=== PATIENT | female | born 1945 | race Caucasian/White ===

== ENCOUNTER 2019-01-25 10:49 | Day surgery (SDC) | payer OTHER, BC ==
[2019-01-25] MEDS ORDERED: DUOVISC 1 KIT OPTH ONE (11:10)
[2019-01-25] MEDS ORDERED: NS 0.9% VIAL 10 ML ONE (11:10)
[2019-01-25] MEDS ORDERED: EPINEPHRINE/PF 1 MG/ML AMP ONE (11:10)
[2019-01-25] MEDS ORDERED: BALANCED SALT IRRIG PLAIN 500 ML BTL IRR ONE (11:10)
[2019-01-25] MEDS ORDERED: MOXIFLOXACIN HCL 10 DROPS/ML **OR USE OPTH ONE (11:11)
[2019-01-25] MEDS ORDERED: NA CHLORIDE 0.9% 500 ML ONE (11:12)
[2019-01-25] MEDS ORDERED: CYCLOPENTOLATE 1% OPTH 2 ML ONE (11:12)
[2019-01-25] MEDS ORDERED: PHENYLEPHRINE 10% OPTH 5ML ONE (11:12)
[2019-01-25] MEDS ORDERED: PHENYLEPHRINE 10% OPTH 5ML OPTH ONE ×2 (11:18→11:24)
[2019-01-25] MEDS ORDERED: CYCLOPENTOLATE 1% OPTH 2 ML OPTH ONE ×2 (11:18→11:24)
[2019-01-25] MEDS: TETRACAINE HCL 0.5% 2ML OPTH ONE ×2 (12:26→12:40)
[2019-01-25] MEDS: BUPIVACAINE 0.25% PF 10 ML VIAL ONE ×2 (12:27→12:41)
[2019-01-25] MEDS: LIDOCAINE 2% MPF 5 ML VIAL ONE ×2 (12:28→12:41)
[2019-01-25] MEDS ORDERED: PROPOFOL 200 MG/20 ML VIAL IV ONE (12:47)
[2019-01-25] MEDS ORDERED: LIDOCAINE 1% MPF 5 ML VIAL ONE (12:47)
--- NOTE | 2019-01-25 13:24 | P.BOP ---
Preoperative diagnosis: Nuclear sclerotic and anterior subcapsular cataract OD Postoperative diagnosis: Same Primary procedure: Phacoemulsification with IOL OD Estimated blood loss: None Anesthesia: Local (Subtenon's infusion with anesthesia for cataract surgery) Complications: None Implants: ZCB00 +15.0 Transferred to: Other (Day surgery) Condition: Good
--- NOTE | 2019-01-25 16:56 | OP ---
Date of Procedure: 01/25/2019 Surgeon: Katalina Plasencia MD Anesthesiologist: Nick Howell CRNA, and Moises Sorensen M.D. Preoperative Diagnoses: Nuclear sclerotic and anterior subcapsular cataract, right eye Operation Performed: Phacoemulsification with intraocular lens implant, right eye. Anesthesia: Per cataract surgery. Complications: None. Description Of Procedure: In day surgery, the patient was prepped with Betadine and draped. A conju nctival incision was made in the inferior nasal quadrant with Miroslava scissors. A sub-Tenon block c onsisting of a 1:1 mixture of 2% Xylocaine and 0.25% bupivacaine was placed through the conjunctival incision with a blunt cannula. A Honan balloon was placed over the eye and the patient was transferr ed to the operating room. In the operating room the patient was prepped and draped in the usual sterile fashion for ophthalmic surgery. A lid speculum was placed in the right eye. Two paracentesis sites were made superiorly an d inferiorly in the limbal cornea. Viscoat was placed in the anterior chamber and a crescent blade w as used to make a corneal groove and tunnel, and a keratome was used to enter the anterior chamber. Provisc was placed in the anterior chamber and a 360 degree capsulotomy was performed with a cystitom e. The lens was hydrodissected with BSS and rotated freely. The lens was removed with a stop and ch op technique. 5.08 phaco CDE was used to remove the lens. Residual cortex was removed with the irri gation and aspiration. Provisc was placed in the capsular bag. A ZCB00 +15.0 lens was placed in the capsular bag without complications. Irrigation and aspiration was used to remove residual viscoelas tic. The paracentesis sites were hydrated with BSS. The wound and paracentesis sites were inspected and found to be watertight. Vigamox 0.07 cc was placed intracamerally at the end of the procedure. The eye was irrigated with balanced salt solution. The eye was patched with a soft cotton patch and Dutta metal shield. The patient was returned to day surgery in good condition. Comments: Discharge Instructions: Ms. Reyez is discharged to home in good condition and is to follow up with Dr. Plasencia in the morning. AMBIKA/VICKI Voice ID: [id number] Report ID: [id number]
== END 2019-01-25 13:55 | disposition home or self-care (01) ==
LOC: OR 10:49
PROVIDERS: ATTEND Ophthalmology Retina Specialist
PROC: 08RJ3JZ Replacement of Right Lens with Synthetic Substitute, Percutaneous Approach (ICD-10-PCS; principal; 2019-01-25 11:00)
DX: H25.11 Age-related nuclear cataract, right eye (principal); H25.031 Anterior subcapsular polar age-related cataract, right eye; K21.9 Gastro-esophageal reflux disease without esophagitis; E78.00 Pure hypercholesterolemia, unspecified; E07.9 Disorder of thyroid, unspecified; Z88.0 Allergy status to penicillin; Z88.2 Allergy status to sulfonamides; Z91.040 Latex allergy status
CPT/HCPCS: 66984; J2704; J0171